=== PATIENT | male | born 1950 | race Caucasian/White ===

== ENCOUNTER → 2019-01-08 | Outpatient (CLI) | payer OTHER ==
--- NOTE | 2019-01-08 09:35 | PCVCIMAG ---
APPROVED REPORT Study performed: 01/08/2019 07:57:04 EXAM: Comprehensive 2D, Doppler, and color-flow Echocardiogram Patient Location: Echo lab Status: routine BSA: 2.27 HR: 53 bpmBP: 156/86 mmHg Rhythm: Bradycardia Other Information Study Quality: Adequate Risk Factors: Cardiac Risk Factors: HTN, Hyperlipidemia Indications Dyspnea 2D Dimensions IVSd: 12.16 (7-11mm) LVDd: 53.23 mm PWd: 11.93 (7-11mm)Ascending Ao: 35.38 (22-36mm) LVDs: 34.90 (25-40mm) Left Atrium: 41.60 (27-40mm) Aortic Root: 34.71 mm LV Single Plane 4CH: 51.39 % LV Single Plane 2CH: 66.97 % Biplane EF: 61.6 % Volumes Left Atrial Volume (Systole) Single Plane 4CH: 92.39 mLSingle Plane 2CH: 98.81 mL LA ESV Index: 43.00 mL/m2 Aortic Valve AoV Peak Tobin.: 1.50 m/s AO Peak Gr.: 8.95 mmHgLVOT Max P.49 mmHg LVOT Max V: 0.93 m/s Mitral Valve E/A Ratio: 0.8 MV Decel. Time: 276.15 ms MV E Max Tobin.: 0.70 m/s MV A Tobin.: 0.86 m/s IVRT: 110.73 ms Pulmonary Valve PV Peak Tobin.: 0.90 m/sPV Peak Gr.: 3.27 mmHg Pulmonary Vein P Vein S: 0.39 m/sP Vein A: 0.29 m/s P Vein D: 0.51 m/sP Vein A Dur.: 138.4 msec P Vein S/D Ratio: 0.76 Tricuspid Valve TR Peak Tobin.: 2.57 m/s TR Peak Gr.: 26.34 mmHg TV Vmax: 0.40 m/s Left Ventricle The left ventricle is normal size. There is normal LV segmental wall motion. Mild concentric left ventricular hypertrophy. Left ventricular systolic function is normal. The left ventricular ejection fraction is within the normal range. LVEF is 55-60%. Mild diastolic dysfunction is present (impaired relaxation pattern). Right Ventricle The right ventricle is normal size. Right ventricle is hypertrophied. The right ventricular systolic function is normal. Atria Left atrium is moderately dilated. Right atrium is mildly dilated. Aortic Valve The aortic valve is mildly calcified. No aortic regurgitation is present. There is no aortic valvular stenosis. Mitral Valve The mitral valve is normal in structure. There is no mitral valve regurgitation noted. No evidence of mitral valve stenosis. Tricuspid Valve The tricuspid valve is normal in structure. Trace tricuspid regurgitation with PAP of 33 mmHg. Pulmonic Valve The pulmonary valve is normal in structure. Trace pulmonic regurgitation. Great Vessels The aortic root is normal in size. IVC is normal in size and collapses >50% with inspiration. Pericardium There is no pericardial effusion. There is no pleural effusion. <Conclusion> Left ventricular systolic function is normal. There is normal LV segmental wall motion. LVEF is 55-60%. Mild diastolic dysfunction The right ventricle is normal size, hypertrophied. Left atrium is moderately dilated. The aortic valve is mildly calcified. No aortic regurgitation or stenosis. The mitral valve is normal in structure. No mitral valve regurgitation. Trace tricuspid regurgitation with pulmonary artery pressure of 33 mmHg. There is no pericardial effusion.
== END | disposition home or self-care (01) ==
LOC: PCVCIMAG 08:14
PROVIDERS: ATTEND Internal Medicine
DX: J43.9 Emphysema, unspecified (principal); R06.00 Dyspnea, unspecified; Z87.891 Personal history of nicotine dependence
CPT/HCPCS: 93306

== ENCOUNTER → 2019-01-13 | Outpatient (CLI) | payer OTHER ==
[~2019-01-13] MED LIST: REGADENOSON 0.4 MG/5 ML DISP.SYRIN. IV ONE
--- NOTE | 2019-01-13 16:45 | PCVCIMAG ---
APPROVED REPORT Imaging Protocol: Rest Tc-99m/Stress Tc-99m 1 day Study performed: 01/13/2019 13:56:53 Indication: Chest pain, Dyspnea, CKD Patient Location: Out-Patient Stress Nurse: Tiesha Segura RN, Aide Stack RN NC Tech:Lilly Farooqangélica [facility] Ht: 5 ft 9 in Wt: 250 lbs BSA: 2.27 m2 HR: 59 bpm BP: 192/89 mmHg BMI: 36.9 Rhythm: Sinus Rhythm, T wave abnormalities, 1st degree AV block Medical History Medical History: Hyperlipidemia, HTN, COPD, Former Smoker Medications: Atorvastatin, Lisinopril, Corgard, Trileptal Allergies: No known drug allergies Cardiac Risk Factors: Age, High Ca Score Pretest Chest Pain Characteristics: No chest pain Exercise History: Sedentary Physical Disabilities: COPD Meds Held (24 hrs): Corgard Resting Data Rest SPECT myocardial perfusion imaging was performed in supine position 45 minutes following the intravenous injection of 13.6 mCi of Tc-99m Sestamibi. Time of rest injection: 1345 Date: 01/13/2019 Administration Route: IV Administration Site: Right AC Pharmacologic Stress Pharmacologic stress test was performed by injecting Regadenoson 0.4 mg IV push over 10-15 seconds immediately followed by the intravenous injection of 46.7 mCi of Tc-99m Sestamibi. Time of stress injection: 1500 Date: 01/13/2019 Administration Route: IV Administration Site: Right AC Gated Stress SPECT was performed 45 minutes after stress injection. The images were gated to evaluate regional wall motion and calculate left ventricular ejection fraction. Stress Test Details Stress Test: Pharmacologic stress was paired with low level exercise. Reason for pharmacologic stress test: physical limitation, COPD. HRMax Heart Rate (APMHR): 150 bpm Resting HR: 59 bpmTarget HR (85% APMHR): 127 bpm Max HR Achieved: 103 bpm % of APMHR: 68 Recovery HR: 65 bpm BP Resting BP: 192/89 mmHg Max BP: 206/106 mmHg Recovery BP: 177/77 mmHg ECG Resting ECG: Sinus Rhythm, T wave abnormalities, 1st degree AV block Stress ECG: Sinus Rhythm, T wave abnormalities, 1st degree AV block ST Change: None Maximum ST Deviation: 0 mm Arrhythmia: None Recovery ECG: Sinus Rhythm, T wave abnormalities, 1st degree AV block Recovery ST Change: None Recovery ST Deviation: 0 mm Recovery Arrhythmia: None Clinical Reason for Termination: Dyspnea Stress Symptoms: Dyspnea Symptoms resolved with caffeine. Stress ECG Conclusion ECG: Non-ischemic Clinical: Non-ischemic Study Quality Study: Good Study Data Post stress, the left ventricular ejection was 63%.. SSS: 3 SRS: 3 SDS: 2 TID = 1.08. Perfusion No evidence of stress induced ischemia or prior myocardial infarction. Wall Motion Normal left ventricular size and function with no regional wall motion abnormalities. Nuclear Conclusion No evidence of stress induced ischemia or prior myocardial infarction. Normal left ventricular size and function with no regional wall motion abnormalities. Post stress, the left ventricular ejection was 63%. No prior study available for comparison. Interpreted by: Mahendra Pacheco MD Electronically Approved: 01/13/2019 16:42:39 <Conclusion> ECG: Non-ischemic Clinical: Non-ischemic
== END | disposition home or self-care (01) ==
LOC: PCVCIMAG 13:47
PROVIDERS: ATTEND Internal Medicine
DX: R07.9 Chest pain, unspecified (principal); R06.00 Dyspnea, unspecified; R93.1 Abnormal findings on diagnostic imaging of heart and coronary circulation; N18.9 Chronic kidney disease, unspecified
CPT/HCPCS: 78452; 93017; A9500; J2785